=== PATIENT | female | born 1975 | race African-American/Black ===

== ENCOUNTER 2024-11-15 13:38 | Emergency (ER) | payer BC ==
[~2024-11-15] VITALS: Ht 157.5 cm; Wt 63.5 kg
[2024-11-15 13:42] VITALS: O2SAT 100
[2024-11-15 15:38] VITALS: BP 125/68; PULSE 84; RESP 19; TEMP 36.8; O2SAT 100
== END 2024-11-15 15:50 | disposition home or self-care (01) ==
LOC: ER 13:38
DX: M25.511 Pain in right shoulder (principal); M25.531 Pain in right wrist; Z98.890 Other specified postprocedural states
CPT/HCPCS: 73030; 73110; 99284

== ENCOUNTER → 2024-12-27 | Outpatient (CLI) | payer BC | END | disposition home or self-care (01) | LOC: MAMMO 08:04 | DX: R92.333 Mammographic heterogeneous density, bilateral breasts (principal); N64.4 Mastodynia; Z80.3 Family history of malignant neoplasm of breast | CPT/HCPCS: 76641; 77062; 77066; G0279 ==

== ENCOUNTER → 2025-02-04 | Outpatient (CLI) | payer BC | END | disposition home or self-care (01) | LOC: US 07:05 | DX: E04.2 Nontoxic multinodular goiter (principal) | CPT/HCPCS: 76536 ==